=== PATIENT | female | born 1995 | race Caucasian/White ===

== ENCOUNTER 2016-10-08 05:26 | Emergency (ER) | payer OTHER ==
--- NOTE | 2016-10-08 06:46 | ED ---
Throat Pain/Nasal Congestion - HPI Summary HPI Summary: 21F w/ no PMH presents with right lower dental pain since Saturday. She previously had an abscess in the tooth. She did not see a dentist for this. She recently got insurance and stated that the tooth wasn't bothering her so she forgot to set up a dentist. She states she bite on something hard and her tooth started to hurt. She denies any fever, SOB, swelling of her neck, chest pain, swelling around the eye or pain with eye movement. She has been using tyenlol and motrin for the pain. - History of Current Complaint Chief Complaint: EDDentalPain Time Seen by Provider: 10/08/16 06:34 - Allergies/Home Medications Allergies/Adverse Reactions: Allergies Allergy/AdvReac Type Severity Reaction Status Date / Time No Known Allergies Allergy Verified 07/14/16 08:20 PMH/Surg Hx/FS Hx/Imm Hx Endocrine/Hematology History: Denies: Hx Anticoagulant Therapy Cardiovascular History: Denies: Hx Hypertension Infectious Disease History: No Infectious Disease History: Denies: Traveled Outside the [place] in Last 30 Days - Family History Known Family History: Positive: None Negative: Cardiac Disease - Social History Alcohol Use: Rare Substance Use Type: Reports: None Smoking Status (MU): Light Every Day Tobacco Smoker Review of Systems Negative: Fever Positive: Dental Pain Negative: Chest Pain Negative: Shortness Of Breath All Other Systems Reviewed And Are Negative: Yes Physical Exam Triage Information Reviewed: Yes Vital Signs On Initial Exam: Initial Vitals Temp Pulse Resp BP Pulse Ox 98 F 110 20 144/90 99 10/08/16 05:36 10/08/16 05:36 10/08/16 05:36 10/08/16 05:36 10/08/16 05:36 Vital Signs Reviewed: Yes Appearance: Positive: Pain Distress Skin: Positive: Warm, Dry Head/Face: Positive: Normal Head/Face Inspection Eyes: Positive: Normal, EOMI, TG, Conjunctiva Clear ENT: Positive: Normal ENT inspection, Pharynx normal, TMs normal Dental: Positive: Percussion Tenderness @ - 32, Other - no submandibular tenderness, no jaw line tenderness. Negative: Dental Fracture @, Abscess @, Bleeding Neck: Positive: Supple, Nontender, No Lymphadenopathy Respiratory/Lung Sounds: Positive: Clear to Auscultation, Breath Sounds Present Cardiovascular: Positive: Normal, RRR Diagnostics - Vital Signs Vital Signs Temp Pulse Resp BP Pulse Ox 10/08/16 05:36 98 F 110 20 144/90 99 - Laboratory Lab Statement: Any lab studies that have been ordered have been reviewed, and results considered in the medical decision making process. EENT Course/Dx - Course Course Of Treatment: 21 F presents with dental pain in tooth 32. She has been seen here multiple times for this pain. She has not scheduled a dentist appointment yet though she does have insurance now. Do not see abscess or dental fracture. Will prescribed PCN and encouraged to schedule dentist appointment today. patient understands and agrees with plan - Differential Diagnoses Differential Diagnoses: Dental Abscess, Dental Caries, Fractured Tooth - Diagnoses Provider Diagnoses: Pain, dental Discharge - Discharge Plan Condition: Good Disposition: HOME Prescriptions: Penicillin VK TAB* [Penicillin VK 250 mg Tab*] 500 mg PO QID #39 tab Patient Education Materials: Toothache (ED) Referrals: [facility] [place] [facility] REFERRAL [Outside] Additional Instructions: Set up dentist and primary as soon as possible Take antibtiotic: 4 times a day for 10 days, first dose given in ER Use ibuprofen every 6 hours for pain Return to ED if develop fever, shortness of breath, or swelling in the neck, or any new or worsening symptoms
[2016-10-08] MEDS ORDERED: oxyCODONE/Acetamin 5/325 MG* TAB PO ONE (06:48)
[2016-10-08] MEDS ORDERED: Penicillin VK TAB* 250 MG PO ONE (06:48)
[2016-10-08 07:07] VITALS: BP 126/85
== END 2016-10-08 07:04 | disposition home or self-care (01) ==
LOC: ED 05:26
DX: K08.89 Other specified disorders of teeth and supporting structures (principal); Z72.0 Tobacco use
CPT/HCPCS: 99282; A9270-GY

== ENCOUNTER 2016-11-21 18:43 | Emergency (ER) | payer OTHER ==
[2016-11-21 18:50] VITALS: BP 136/83
[2016-11-21] MEDS ORDERED: traMADol TAB* 50 MG PO ONE (19:36)
[2016-11-21] MEDS ORDERED: traMADol TAB* 50 MG ONE (19:37)
--- NOTE | 2016-11-21 20:14 | ED ---
Throat Pain/Nasal Congestion - HPI Summary HPI Summary: Patient presents with left upper and right lower tooth pain for several days. She has been in touch with her dentist who is seeking approval from her insurance to remove the teeth, that have exposed nerves. She tried heat pack, clove oil, tylenol and ibuprofen without relief. She denies fever, chills, facial swelling, drainage or inability to open her mouth. - History of Current Complaint Chief Complaint: EDDentalPain Time Seen by Provider: 11/21/16 18:53 Hx Obtained From: Patient Onset/Duration: Gradual Onset Severity: Severe Associated Signs And Symptoms: Positive: Negative Cough: None - Epiglottits Risk Factors Epiglottis Risk Factors: Negative - Allergies/Home Medications Allergies/Adverse Reactions: Allergies Allergy/AdvReac Type Severity Reaction Status Date / Time No Known Allergies Allergy Verified 07/14/16 08:20 PMH/Surg Hx/FS Hx/Imm Hx Previously Healthy: Yes Endocrine/Hematology History: Denies: Hx Anticoagulant Therapy Cardiovascular History: Denies: Hx Hypertension Infectious Disease History: No Infectious Disease History: Denies: Traveled Outside the [place] in Last 30 Days - Family History Known Family History: Positive: None Negative: Cardiac Disease - Social History Occupation: Employed Part-time Lives: With Family Alcohol Use: Rare Substance Use Type: Reports: None Smoking Status (MU): Light Every Day Tobacco Smoker Household Exposure Type: Cigarettes Review of Systems Negative: Fever, Chills Positive: Dental Pain. Negative: Sore Throat, Ear Ache All Other Systems Reviewed And Are Negative: Yes Physical Exam Triage Information Reviewed: Yes Vital Signs On Initial Exam: Initial Vitals Temp Pulse Resp BP Pulse Ox 97.4 F 95 16 136/83 100 11/21/16 18:48 11/21/16 18:48 11/21/16 18:48 11/21/16 18:48 11/21/16 18:48 Vital Signs Reviewed: Yes Appearance: Positive: Well-Appearing, Well-Nourished, Pain Distress Skin: Positive: Warm, Skin Color Reflects Adequate Perfusion, Dry, Soft Head/Face: Positive: Normal Head/Face Inspection Eyes: Positive: EOMI, TG, Conjunctiva Clear ENT: Positive: Hearing grossly normal, Pharynx normal Dental: Positive: Gross Decay/Caries @ - left upper molar, right lower wisdom tooth Neck: Positive: Supple, Nontender, No Lymphadenopathy Respiratory/Lung Sounds: Positive: Clear to Auscultation, Breath Sounds Present Cardiovascular: Positive: RRR Musculoskeletal: Negative: Edema Left, Edema Right Neurological: Positive: Sensory/Motor Intact, Alert, Oriented to Person Place, Time, Normal Gait Psychiatric: Positive: Affect/Mood Appropriate AVPU Assessment: Alert Diagnostics - Vital Signs Vital Signs Temp Pulse Resp BP Pulse Ox 11/21/16 19:49 70 16 11/21/16 18:48 97.4 F 95 16 136/83 100 - Laboratory Lab Statement: Any lab studies that have been ordered have been reviewed, and results considered in the medical decision making process. EENT Course/Dx - Differential Diagnoses Differential Diagnoses: Dental Abscess, Dental Caries, Fractured Tooth, Gingivitis, Periodontic Abscess, Periodontic Disease, Post-Extraction Pain - Diagnoses Provider Diagnoses: Pain, dental Discharge - Discharge Plan Condition: Stable Disposition: HOME Prescriptions: traMADol TAB* [Ultram*] 50 mg PO Q8H PRN #6 tab MDD 3 PRN Reason: Pain Patient Education Materials: Toothache (ED) Referrals: No Primary Care Phys,NOPCP [Primary Care Provider] - Additional Instructions: Please use the medication provided to help decrease your pain. Continue using ibuprofen 800mg three times daily with meals, and alternate 1000mg of Tylenol every 6 hours. Call your dentist to establish a pain management plan.
== END 2016-11-21 19:49 | disposition home or self-care (01) ==
LOC: ED 18:43
DX: K08.89 Other specified disorders of teeth and supporting structures (principal); F17.210 Nicotine dependence, cigarettes, uncomplicated
CPT/HCPCS: 99282; A9270-GY

== ENCOUNTER 2017-10-11 12:45 | Emergency (ER) | payer SELFPAY ==
[2017-10-11 13:37] LABS: ABS Basophils 0 10^3/ul (0-0.2); ABS Eosinophils 0.1 10^3/ul (0-0.6); ABS Lymphocytes 1.2 10^3/ul (1.0-4.8); ABS Monocytes 0.5 10^3/ul (0-0.8); ABS Neutrophils 5.4 10^3/ul (1.5-7.7); ABS Nucleated RBC 0 10^3/ul; Eosinophil % 1.7 % (0-6); Hematocrit 30 % (35-47); Hemoglobin 10.4 g/dl (12.0-16.0); Mean Corpuscular HGB Conc 34 g/dl (31-36); Mean Corpuscular Hemoglobin 30 pg (27-31); Mean Corpuscular Volume 88 fL (80-97); Mean Platelet Volume 8 um3 (7.4-10.4); Nucleated Red Blood Cells % 0; Platelet Count 217 10^3/ul (150-450); Red Blood Count 3.46 10^6/ul (4.0-5.4); Red Cell Distribution Width 15 % (10.5-15); White Blood Count 7.3 10^3/ul (3.5-10.8)
[2017-10-11 13:57] LABS: Urine Appearance Clear; Urine Blood Negative (Negative); Urine Color Yellow; Urine Ketones Negative (Negative); Urine Protein Negative (Negative); Urine Urobilinogen Negative (Negative)
[2017-10-11] MEDS ORDERED: Acetaminophen TAB* 325 MG PO ONE (16:52)
[2017-10-11 17:13] VITALS: BP 112/56
--- NOTE | 2017-10-12 16:47 | ED ---
Chris Huerta Thomas, scribed for Manny Shane MD on 10/11/17 at 1338 . Complex/Multi-Sys Presentation - HPI Summary HPI Summary: The patient is a 24-weeks , 22 year old female presenting with lower back pain and swelling across her face, eyes, lips, and ankles that began this morning at 08:00. She complains of nausea, headache, and black spots in her vision. She denies abdominal pain, hematuria, vaginal discharge, and vaginal bleeding. In her prior , she had preeclampsia at 7 months. - History Of Current Complaint Chief Complaint: EDBackInjuryPain Time Seen by Provider: 10/11/17 12:54 Hx Obtained From: Patient Onset/Duration: Lasting Hours - onst this AM at 08:00, Still Present Severity Currently: Moderate Severity Initially: Mild Alleviating Factor(s): None Associated Signs And Symptoms: Positive: Other - Lower back pain, swelling, nausea, headache, black spots in vision; NEGATIVE: abd pain, hematuria, vaginal discharge, vaginal bleeding - Allergies/Home Medications Allergies/Adverse Reactions: Allergies Allergy/AdvReac Type Severity Reaction Status Date / Time No Known Allergies Allergy Verified 07/14/16 08:20 PMH/Surg Hx/FS Hx/Imm Hx Endocrine/Hematology History: Denies: Hx Anticoagulant Therapy Cardiovascular History: Denies: Hx Hypertension History: Reports: Other Problems/Disorders - Hx preeclampsia Infectious Disease History: No Infectious Disease History: Denies: Traveled Outside the [place] in Last 30 Days - Family History Known Family History: Negative: Cardiac Disease - Social History Alcohol Use: None Substance Use Type: Reports: None Substance Use Comment - Amount & Last Used: hx marijuana use Smoking Status (MU): Former Smoker Review of Systems Negative: Fever Positive: Other - Black spots in vision Positive: Nausea. Negative: Abdominal Pain Negative: discharge, hematuria, other - vaginal bleeding Positive: Other - Lower back pain, swelling to face/eyes/lips/ankles Positive: Headache All Other Systems Reviewed And Are Negative: Yes Physical Exam - Summary Physical Exam Summary: VITAL SIGNS: Reviewed. GENERAL: Patient is a well-developed and nourished female who is lying comfortable in the stretcher. Patient is not in any acute respiratory distress. HEAD AND FACE: Normocephalic and atraumatic. EYES: PERRLA, EOMI x 2, No injected conjunctiva. EARS: Hearing grossly intact. Ear canals and tympanic membranes are WNL. MOUTH: Oropharynx within normal limits. NECK: Supple, trachea is midline, no adenopathy, no JVD. CHEST: Symmetric, no tenderness at palpation LUNGS: Clear to auscultation bilaterally. No wheezing or crackles. CVS: RRR, S1 and S2 present, no murmurs or gallops appreciated. ABDOMEN: Soft, non-tender. Abdomen is distended secondary to . Positive bowel sounds. No rebound no guarding, and no masses palpated. No abdominal bruit or pulsations. EXTREMITIES: FROM in all major joints, no edema, no cyanosis or clubbing. NEURO: Alert and oriented x 3. No acute neurological deficits. Speech is normal. SKIN: Dry and warm Triage Information Reviewed: Yes Vital Signs On Initial Exam: Initial Vitals Temp Pulse Resp BP Pulse Ox 97.9 F 94 16 106/61 98 10/11/17 12:53 10/11/17 12:53 10/11/17 12:53 10/11/17 12:53 10/11/17 12:53 Vital Signs Reviewed: Yes Diagnostics - Vital Signs Vital Signs Temp Pulse Resp BP Pulse Ox 10/11/17 13:10 110/52 10/11/17 13:00 94 97 10/11/17 12:55 93 106/61 98 10/11/17 12:54 94 98 10/11/17 12:53 97.9 F 94 16 106/61 98 - Laboratory Lab Results: Lab Results 10/11/17 Range/Units 13:14 Blood Type Pending Antibody Screen Pending Result Diagrams: 10/11/17 13:14 10/11/17 13:14 Lab Statement: Any lab studies that have been ordered have been reviewed, and results considered in the medical decision making process. Complex Multi-Symp Course/Dx Assessment/Plan: The patient is a 24-weeks , , 22 year old female presenting with lower back pain and swelling across her face, eyes, lips, and ankles that began this morning at 08:00. She complains of nausea, headache, and black spots in her vision. She denies abdominal pain, hematuria, vaginal discharge, and vaginal bleeding. In her prior , she had preeclampsia at 7 months. Test results are without significant abnormality except a slight anemia. Urinalysis is negative for UTI. She is A positive blood type. In the ED course, the patient was hydrated and given acetaminophen for the pain. She had no further back pain after the medication. heart tones are positive. Since there are no abnormalities, and there is no abdominal cramping, vaginal bleeding, or vaginal discharge, the patient will be discharged home with follow up by CECY Linares. - Diagnoses Provider Diagnoses: Back pain Discharge - Discharge Plan Condition: Stable Disposition: HOME Patient Education Materials: Back Pain (ED) Referrals: [facility] [place] [facility] [Outside] - 3 Days Lucy Herrera MD [Medical Doctor] - 3 Days Additional Instructions: Follow up with your primary care provider in three days. Follow up with CECY Linares, as well for an appointment. If you do not have one, you can use the [facility] physician referral service to find one and make an appointment. Return to the emergency department for any new or worsening symptoms. The documentation as recorded by the Chris garcia Thomas accurately reflects the service I personally performed and the decisions made by , Manny Shane MD.
== END 2017-10-11 17:12 | disposition home or self-care (01) ==
LOC: ED 12:45
DX: O26.892 Other specified pregnancy related conditions, second trimester (principal); Z3A.24 24 weeks gestation of pregnancy; Z87.891 Personal history of nicotine dependence
CPT/HCPCS: 36415; 80053; 81003; 85025; 85730; 86850; 86900; 86901; 99283; A9270-GY

== ENCOUNTER 2018-02-07 15:57 | Inpatient (IN) | payer OTHER ==
[2018-02-07] MEDS ORDERED: Oxytocin in LR* 20 UNITS/1,000 ML BAG IVPB ONE (16:45)
[2018-02-07] MEDS ORDERED: Acetaminophen TAB* 325 MG PO PRN (16:56)
[2018-02-07] MEDS ORDERED: Dibucaine 1% 28.35 GM TUBE PR PRN (16:56)
[2018-02-07] MEDS ORDERED: Glycerin ADULT SUPP PR PRN (16:56)
[2018-02-07] MEDS ORDERED: Witch Hazel PAD* JAR TOPICAL PRN (16:56)
[2018-02-07] MEDS ORDERED: Ibuprofen TAB* 600 MG ONE (16:57)
[2018-02-07] MEDS ORDERED: Oxytocin in LR* 20 UNITS/1,000 ML BAG IVPB SCH (17:00)
[2018-02-07] MEDS: Ibuprofen TAB* 600 MG PO PRN ×2 (17:00→23:49)
--- NOTE | 2018-02-07 17:04 | HP ---
General Information - General Information Maternal Age: 23 Grav: 2 Para: 1 SAB: 0 IEA: 0 Estimated Due Date: 02/09/18 Determined By: Early Ultrasound Gestational Age in Weeks and Days: 39 Weeks and 5 Days Maternal Blood Type and Rh: A Positive - Results this Serology/RPR Result: Non-Reactive Rubella Result: Immune HBsAg Result: Negative HIV Result: Negative GBS Culture Result: Negative Past Medical History Delivery History: Hx Uncomplicated Vaginal Delivery Delivery History Comment: prior induction at 37 wks for preeclampsia Pertinent Past Medical History: Non-Contributory Past Medical History Comment: LGSIL Pertinent Past Surgical History: None Pertinent Family History: Non-Contributory Family History Comment: mother with thyroid cancer - Antepartal Records Antepartal Records: Reviewed, Complicated by: - smoker, drug screen positive for THC, opiods Review of Systems Constitutional: Uncomfortable - wants epidural CV Complaint: No Respiratory: Shortness of Breath: No Gastrointestinal: No Nausea/Vomiting Genitourinary: No Leaking Fluid Musculoskeletal: Contractions Neurological: No Headache Movement: Normal Exam Allergies/Adverse Reactions: Allergies No Known Allergies Allergy (Verified 07/14/16 08:20) - Measurements Height: 5 ft 6 in Weight: 179 lb Weight in lbs: 179 Body Mass Index (BMI): 28.8 Pre- Weight: 5.221 oz Weight Gained This : 178.673 lbs and 0.011 ozs - Exam Breast: - - soft, no masses CVA: No CVA Tenderness Extremities: Edema Heart: Normal Rhythm/Heart Sounds HEENT: No Significant Findings Lungs: Clear Bilaterally Reflexes: DTR 2+ Thyroid: No Thyromegaly - Ultrasound/Biophysical Profile Ultrasound Status: Not Done Targeted Exam Findings See L&D Outpatient Visit Provider Note for Findings: N/A Estimated Weight: 8 lbs Cervical Exam: 8cm Effacement: 90% Station: 0 Presenting Part: Vertex Membrane Status: Bulging EFM Findings - External Monitor Findings Baseline Heart Rate: 130 External Monitor Findings: Accelerations Present, No Pattern of Variable or Late Decelerations, Variability Moderate External Monitor Findings Comment: category 1 Contractions: Regular, Strong, 45-90 Seconds Contraction Frequency: every 3 min Assessment/Plan - Reason for Visit Reason for Visit: labor - Obstetrical Risk Factors Obstetrical Risk Factors: Substance Abuse, Tobacco Use - Plan Plan: Active Labor Plan Comment: Will admit, anticipate vaginal delivery Suggest nitrous oxide as do not feel will have time for epidural - Date/Time of Admission Date of Admission: 02/07/18 Time of Admission: 16:00
[2018-02-07] MEDS: Docusate CAP* 100 MG PO SCH (21:46)
[2018-02-08] MEDS ORDERED: Calcium Carbonate CHEW TAB* 500 MG (TUMS) PO PRN (02:21)
[2018-02-08] MEDS ORDERED: Calcium Carbonate CHEW TAB* 500 MG (TUMS) ONE (02:38)
[2018-02-08 06:11] LABS: Hematocrit 27 % (35-47); Mean Corpuscular HGB Conc 34 g/dl (31-36); Mean Corpuscular Hemoglobin 29 pg (27-31); Mean Corpuscular Volume 84 fL (80-97); Mean Platelet Volume 8.7 um3 (7.4-10.4); Platelet Count 174 10^3/ul (150-450); Red Blood Count 3.16 10^6/ul (4.0-5.4); Red Cell Distribution Width 16 % (10.5-15); White Blood Count 8.3 10^3/ul (3.5-10.8)
[2018-02-08] MEDS: Ferrous Gluconate TAB* 324 MG TAB PO SCH ×2 (08:29→21:54)
[2018-02-08] MEDS: Docusate CAP* 100 MG PO SCH ×3 (08:29→21:54)
[2018-02-08] MEDS: Ibuprofen TAB* 600 MG PO PRN ×3 (08:29→23:54)
[2018-02-09 08:49] VITALS: BP 120/59
[2018-02-09] MEDS: Docusate CAP* 100 MG PO SCH (09:24)
[2018-02-09] MEDS: Ferrous Gluconate TAB* 324 MG TAB PO SCH (09:24)
[2018-02-09] MEDS: Ibuprofen TAB* 600 MG PO PRN (11:23)
== END 2018-02-09 13:00 | disposition home or self-care (01) | DRG 560 ==
LOC: MCHOBOUT 15:57 → MCHOB 16:01
PROVIDERS: ADMIT Midwife; ATTEND Midwife
PROC: 10E0XZZ Delivery of Products of Conception, External Approach (ICD-10-PCS; principal; 2018-02-07)
PROC: 10907ZC Drainage of Amniotic Fluid, Therapeutic from Products of Conception, Via Natural or Artificial Opening (ICD-10-PCS; 2018-02-07)
DX: O99.324 Drug use complicating childbirth (principal); F11.90 Opioid use, unspecified, uncomplicated; O99.334 Smoking (tobacco) complicating childbirth; F17.210 Nicotine dependence, cigarettes, uncomplicated; O90.81 Anemia of the puerperium; D64.9 Anemia, unspecified; O70.0 First degree perineal laceration during delivery; Z3A.39 39 weeks gestation of pregnancy; Z37.0 Single live birth
CPT/HCPCS: 36415; 85027; A9270-GY

== ENCOUNTER → 2018-11-17 18:47 | Emergency (ER) | payer OTHER ==
[2018-11-17 19:30] VITALS: BP 132/72
== END | disposition left against medical advice (07) ==
LOC: ED 18:47
DX: R50.9 Fever, unspecified (principal); Z53.21 Procedure and treatment not carried out due to patient leaving prior to being seen by health care provider

== ENCOUNTER 2019-02-20 21:39 | Inpatient (IN) | payer OTHER ==
[2019-02-20] MEDS ORDERED: Oxytocin in LR* 20 UNITS/1,000 ML BAG IVPB ONE (21:56)
[2019-02-20] MEDS ORDERED: Buffered Lidocaine 1% SYRIN* 1 ML/SYRINGE INTRADERM ONE (22:30)
[2019-02-20] MEDS ORDERED: Lactated Ringers 1000 ML Bag* 1,000 ML IV ONE (22:30)
[2019-02-20] MEDS ORDERED: Witch Hazel PAD* JAR TOPICAL PRN (22:41)
[2019-02-20] MEDS ORDERED: Dibucaine 1% 28.35 GM TUBE PR PRN (22:41)
[2019-02-20] MEDS ORDERED: Glycerin ADULT SUPP PR PRN (22:41)
[2019-02-20] MEDS ORDERED: Lactated Ringers 1000 ML Bag* 1,000 ML IV SCH ×2 (23:00)
[2019-02-20] MEDS ORDERED: Oxytocin in LR* 20 UNITS/1,000 ML BAG IVPB SCH (23:00)
[2019-02-20] MEDS ORDERED: Ibuprofen TAB* 600 MG ONE (23:11)
[2019-02-20] MEDS ORDERED: Nicotine PATCH 7 MG/24 HR* PATCH TRANSDERM SCH (23:45)
--- NOTE | 2019-02-21 00:33 | HP ---
General Information - Reason for Visit labor - General Information Maternal Age: 24 Grav: 3 Para: 2 SAB: 0 IEA: 0 Estimated Due Date: 02/18/19 Determined By: Early Ultrasound Maternal Blood Type and Rh: A Positive - Results this Serology/RPR Result: Non-Reactive Rubella Result: Immune HBsAg Result: Negative HIV Result: Negative GBS Culture Result: Positive Past Medical History Delivery History: Hx Uncomplicated Vaginal Delivery Delivery History Comment: SVB, PEC 03/2015 SVB 01/2018 Pertinent Past Medical History: See Records Past Medical History Comment: Hx Opioid dependence, on Subutex Depression, fluoxetine Migraine Pertinent Past Surgical History: None Pertinent Family History: See Records Family History Comment: Thyroid Ca Diabetes Throat Ca - Antepartal Records Antepartal Records: Reviewed, Complicated by: - Subutex, homelessness , hx PEC previous , varicella non-immune, smoker Review of Systems Constitutional: Uncomfortable CV Complaint: No Respiratory: Shortness of Breath: No Genitourinary: Leaking Fluid - ? Musculoskeletal: Contractions, Pressure - Comments Difficult to assess as patient in active labor on arrival Exam Allergies/Adverse Reactions: Allergies No Known Allergies Allergy (Verified 02/20/19 22:02) - Measurements Pre- Weight: 5.221 oz - Exam Breast: Breast Exam Deferred - Abdominal Exam Abdomen Exam: Non-Tender - Ultrasound/Biophysical Profile Ultrasound Status: Not Done Targeted Exam Findings Cervical Exam: 8cm Presenting Part: Vertex Membrane Status: Intact Bleeding/Discharge: None EFM Findings - External Monitor Findings Baseline Heart Rate: 130 External Monitor Findings: Accelerations Present, No Pattern of Variable or Late Decelerations, Variability Moderate Contractions: Strong, 45-90 Seconds Contraction Frequency: q 2-4 min Assessment/Plan - Assessment IUP in active labor. IBOW. GBS positive. No evidence metabolic acidemia. - Obstetrical Risk Factors Obstetrical Risk Factors: GBS Positive - Plan Plan: Admit - Anticipate Vaginal Delivery - Date/Time of Admission Date of Admission: 02/21/19 Time of Admission: 21:55
--- NOTE | 2019-02-21 00:59 | PROCNOTE ---
[facility] OB: Delivery Note - Delivery A Date of : 02/20/19 Time of : 22:10 [place] Sex: Male Weight at : 6 lb 11 oz Score 1 Minute: 8 Score 5 Minutes: 9 Gestational Age in Weeks and Days at Delivery: 40 Weeks and 2 Days Delivery Method: Spontaneous Vaginal Labor: Spontaneous Did Patient attempt ?: N/A, No Previous Amniotic Fluid: Meconium Estimated Blood Loss: 450 Anesthesia/Analgesia: None Delivered By: Katharine Barrera - Nursery Level of Nursery: Regular/Bedside - Perineum Perineal Injury: None/Intact Perineal Repair: None - Events Delivery Events of Note: Pitocin Only After Delivery, Precipitous Delivery, Antibiotics Indicated - Not Given - Risk for Falls Delivered OB Patient- Risk for Falls: Heavy Bleeding, Excessive Pain Other Risk for Falls: hx of preeclampsia Fall Risk: Patient is at High Risk for Falls - Additional Delivery Notes Additional Delivery Notes: Patient arrived via ambulance in active labor. Shortly after began pushing, pushed 5 min to of baby, OA to BRANDY. Baby vigorous, to maternal abdomen with spontaneous cry, HR>110. Cord clamped and cut by FOB. Fundus firm to massage with pitocin infusing. Clots expressed several times and cytotec 800mcg give NM with good hemostasis. Baby stable.
[2019-02-21 03:15] LABS: Urine Benzodiazepine Screen None Detected (None Detect); Urine Opiates Screen None Detected (None Detect)
[2019-02-21] MEDS ORDERED: Misoprostol TAB* 200 MCG ONE (04:33)
[2019-02-21] MEDS: Ibuprofen TAB* 600 MG PO PRN ×3 (05:45→20:07)
[2019-02-21] MEDS: Calcium Carbonate CHEW TAB* 500 MG (TUMS) PO PRN ×2 (06:53→16:10)
[2019-02-21] MEDS ORDERED: Ferrous Gluconate TAB* 324 MG TAB PO SCH (09:00)
[2019-02-21] MEDS ORDERED: Varicella Virus Vaccine Live* 0.5 ML VIAL SUBCUT ONE (09:00)
[2019-02-21] MEDS: Docusate CAP* 100 MG PO SCH ×3 (11:21→20:08)
[2019-02-21] MEDS ORDERED: diPHENhydraMINE PO* 50 MG ONE (11:57)
[2019-02-21 12:12] LABS: ABS Eosinophils 0.1 10^3/ul (0-0.6); ABS Lymphocytes 1.5 10^3/ul (1.0-4.8); ABS Monocytes 0.6 10^3/ul (0-0.8); ABS Neutrophils 3.4 10^3/ul (1.5-7.7); Eosinophil % 2.2 %; Hematocrit 28 % (35-47); Hemoglobin 9.5 g/dL (12.0-16.0); Lymphocyte % 26.3 %; Mean Corpuscular HGB Conc 34 g/dL (31-36); Mean Corpuscular Hemoglobin 28 pg (27-31); Mean Corpuscular Volume 81 fL (80-97); Mean Platelet Volume 9.3 fL (7.4-10.4); Platelet Count 130 10^3/uL (150-450); Red Blood Count 3.44 10^6 /uL (3.70-4.87); Red Cell Distribution Width 16 % (10-15); White Blood Count 5.6 10^3/uL (3.5-10.8)
[2019-02-21] MEDS: Buprenorphine TAB* 8 MG SL SCH (12:16)
[2019-02-21] MEDS ORDERED: diPHENhydraMINE PO* 50 MG PO PRN (12:49)
[2019-02-21 13:09] LABS: Albumin 2.7 g/dL (3.2-5.2); Albumin/Globulin Ratio 1.1 (1-3); BUN/Creatinine Ratio 16.1 (8-20); C Reactive Protein 25.2 mg/L (<8.01); Calcium 8.7 mg/dL (8.6-10.3); EGFR African American 159.6 (>60); EGFR Non-African American 131.9 (>60); Globulin 2.4 g/dL (2-4); Potassium 3.7 mmol/L (3.5-5.0); Total Bilirubin 0.5 mg/dL (0.2-1.0); Total Protein 5.1 g/dL (6.4-8.9)
--- NOTE | 2019-02-21 13:10 | PN ---
Progress Note - Progress Note Date of Service: 02/21/19 Note: S: Pt is in bed sleeping. Baby at nurses station. Notified by RN pt's eyes and lips swelling. Pt states no hx of this happening in past, pt states feels like it started right after delivery. Also reports abdominal cramping. Denies SOB, dizziness, nausea/vomiting, itching. O: BP 121/70, RR 18, HR 70, Temp 98 Edema of eyes, lips Lungs clear to auscultation, bilaterally Fundus firm and at the umbilicus A: Pt is s/p VSS angioedema P: Benadryl, 50mg now and loratidine, 10mg, prn. Labs: CBC, Complement c4, CMP, CRP, LFT, ESR
[2019-02-21] MEDS ORDERED: Cetirizine* 10 MG TAB PO PRN (13:19)
--- NOTE | 2019-02-21 13:45 | PN ---
Progress Note - Progress Note Date of Service: 02/21/19 Note: S: Pt is in bed sleeping. Baby at bedside. RN feeding baby via bottle. Abdominal cramping improved. Denies SOB, dizziness, nausea/vomiting, itching. Pt upset and wants to leave the hospital. States she needs to go to [employer] and get her things. States no one else can go and get what she needs. Explained the hospital policy, no pt allowed to leave unit, and explained why. Offered to call [facility] with a desired list of items so her SO could bring while here. Pt threatening to leave AMA. Explained strongly advised given angioedema and need to care for . O: Edema of eyes and lips A: Pt is s/p angioedema - unchanged from last assessment P: Consult with Keli Herrera - urine drug screen and SW consult now. Loratidine, 10mg , PRN. Concerned about pt's involvement with baby - RNs aware; SW paged.
[2019-02-21] MEDS: Buprenorphine TAB* 2 MG TAB.SL SL SCH (14:14)
[2019-02-21] MEDS ORDERED: Famotidine TAB* 20 MG PO ONE (15:49)
[2019-02-21 16:01] LABS: Urine Benzodiazepine Screen None Detected (None Detect); Urine Opiates Screen None Detected (None Detect)
[2019-02-21] MEDS: Acetaminophen TAB* 325 MG PO PRN (16:19)
--- NOTE | 2019-02-21 16:30 | PN ---
Progress Note - Progress Note Date of Service: 02/21/19 Note: Pt doing well. Holding baby. Smiling, engaged with RN and myself. Using higher dose nicotine patch - pt reports helps cravings a bit more. Ordering dinner. Pt showered and reports decrease in eye/lip swelling. Angioedema appears to be resolving s/p H1 histamine. Will continue to monitor closely. Labs returned are unremarkable. CRP elevated, consistent with PP elevation.
[2019-02-21] MEDS ORDERED: Nicotine Patch Removal NOTE PATCH OFF SCH (21:00)
[2019-02-22] MEDS: Acetaminophen TAB* 325 MG PO PRN ×3 (00:30→14:15)
[2019-02-22] MEDS: Ibuprofen TAB* 600 MG PO PRN ×2 (02:57→11:37)
[2019-02-22] MEDS: Buprenorphine TAB* 8 MG SL SCH (08:13)
[2019-02-22] MEDS: Docusate CAP* 100 MG PO SCH ×2 (08:13→14:16)
[2019-02-22] MEDS: Calcium Carbonate CHEW TAB* 500 MG (TUMS) PO PRN (08:13)
[2019-02-22] MEDS ORDERED: Cetirizine* 10 MG TAB PO SCH (09:00)
[2019-02-22] MEDS ORDERED: Nicotine PATCH 21 MG/24 HR* PATCH TRANSDERM SCH (09:00)
[2019-02-22] MEDS: Buprenorphine TAB* 2 MG TAB.SL SL SCH (14:13)
[2019-02-22 16:07] VITALS: BP 118/58
== END 2019-02-22 16:20 | disposition home or self-care (01) | DRG 560 ==
LOC: MCHOBOUT 21:39 → MCHOB 21:55
PROVIDERS: ADMIT Midwife; ATTEND Midwife
PROC: 10E0XZZ Delivery of Products of Conception, External Approach (ICD-10-PCS; principal; 2019-02-20)
PROC: 10907ZC Drainage of Amniotic Fluid, Therapeutic from Products of Conception, Via Natural or Artificial Opening (ICD-10-PCS; 2019-02-20)
DX: O48.0 Post-term pregnancy (principal); Z37.0 Single live birth; O99.824 Streptococcus B carrier state complicating childbirth; O99.344 Other mental disorders complicating childbirth; F32.9 Major depressive disorder, single episode, unspecified; O99.334 Smoking (tobacco) complicating childbirth; O90.81 Anemia of the puerperium; D64.9 Anemia, unspecified; O77.0 Labor and delivery complicated by meconium in amniotic fluid; O90.89 Other complications of the puerperium, not elsewhere classified; T78.3XXA Angioneurotic edema, initial encounter; X58.XXXA Exposure to other specified factors, initial encounter; Y92.230 Patient room in hospital as the place of occurrence of the external cause; Z3A.40 40 weeks gestation of pregnancy
CPT/HCPCS: 36415; 59200; 80053; 80307; 85025; 86140; 86160; A9270-GY

== ENCOUNTER 2019-03-19 17:34 | Emergency (ER) | payer OTHER ==
[2019-03-19] MEDS ORDERED: NS 0.9% 1000 ML** 1,000 ML BOLUS ONE ×2 (17:58→19:13)
[2019-03-19] MEDS ORDERED: Ondansetron INJ* 2 MG/ML VIAL IV ONE (17:59)
--- NOTE | 2019-03-19 19:19 | UC ---
Abdominal Pain Female HPI - HPI Summary HPI Summary: 24 yo female with nausea/vominting x 3 days is one month PP, bottle feeding dizzy when she stands Has had nausea and 1-3 episodes of vomiting /d no real abd pain other than the discomfort associated with the nausea and vomiting no f/c no UTI symptoms Mild WOOD today dental abscess and pain for about a week - History of Current Complaint Chief Complaint: UCGeneralIllness Stated Complaint: DIZZINESS Time Seen by Provider: 03/19/19 17:48 Hx Obtained From: Patient Onset/Duration: Gradual Onset, Lasting Hours Severity Initially: Mild Severity Currently: Mild Pain Intensity: 3 - WOOD Pain Scale Used: 0-10 Numeric Character: Cramping Aggravating Factor(s): Food Alleviating Factor(s): Nothing Associated Signs and Symptoms: Positive: Decreased Appetite, Vaginal Discharge - lochia, Nausea, Vomiting. Negative: Diaphoresis, Fever, Cough, Chest Pain, Dizzy, Back Pain, Constipation, Blood in Stool, Urinary Symptoms, Vaginal Bleeding, Diarrhea Allergies/Adverse Reactions: Allergies Allergy/AdvReac Type Severity Reaction Status Date / Time No Known Allergies Allergy Verified 03/19/19 17:51 PMH/Surg Hx/FS Hx/Imm Hx Previously Healthy: Yes Other History Of: Negative For: Anticoagulant Therapy - Surgical History Surgical History: None - Family History Known Family History: Positive: None, Non-Contributory Negative: Cardiac Disease - Social History Alcohol Use: None Substance Use Type: None Substance Use Comment - Amount & Last Used: pt on suboxone, also admits to marijuana use recently Smoking Status (MU): Light Every Day Tobacco Smoker Type: Cigarettes Household Exposure Type: Cigarettes - Immunization History Most Recent Influenza Vaccination: 10/31/17 Most Recent Pneumonia Vaccination: none Review of Systems All Other Systems Reviewed And Are Negative: Yes Constitutional: Positive: Fatigue Skin: Positive: Negative Eyes: Positive: Negative ENT: Positive: Dental Pain Respiratory: Positive: Negative Gastrointestinal: Positive: Vomiting, Nausea Genitourinary: Positive: Negative Motor: Positive: Negative Neurovascular: Positive: Negative Musculoskeletal: Positive: Negative Neurological: Positive: Headache Physical Exam Triage Information Reviewed: Yes Completion Of Physical Exam Limited Due To: Altered Mental Status Appearance: Well-Appearing Vital Signs: Initial Vital Signs Temp 98.1 F 03/19/19 17:46 Pulse 70 03/19/19 17:46 Resp 16 03/19/19 17:46 BP 106/65 03/19/19 17:46 Pulse Ox 96 03/19/19 17:46 Vital Signs Reviewed: Yes Eyes: Positive: Conjunctiva Clear ENT: Positive: Hearing grossly normal, Uvula midline. Negative: Nasal congestion, Nasal drainage, TMs normal, TM bulging, Tonsillar swelling, Tonsillar exudate, Muffled voice, Hoarse voice Dental Exam: Other - see image Dental: Positive: Abscess @ Neck: Positive: Supple, Nontender, No Lymphadenopathy Respiratory: Positive: Lungs clear, Normal breath sounds, No respiratory distress, No accessory muscle use Cardiovascular: Positive: RRR, No Murmur Abdomen Description: Positive: No Organomegaly, Soft Musculoskeletal: Positive: ROM Intact, No Edema Neurological: Positive: Alert Psychological Exam: Normal Skin Exam: Normal Images Dental: 1 - abscess Re-Evaluation - Re-Evaluation First Eval Change: Improved - feels better, WOOD gone, nausea better Second Eval Re-Evaluation Time: 20:03 Change: Improved Comment: desires to go home...markedly improved Abd Pain Female Course/Dx - Differential Dx/Diagnosis Provider Diagnosis: Acute vomiting, Dental abscess, Dehydration Discharge - Sign-Out/Discharge Documenting (check all that apply): Patient Departure All imaging exams completed and their final reports reviewed: No Studies - Discharge Plan Condition: Improved Disposition: HOME Referrals: No Primary Care Phys,NOPCP [Primary Care Provider] - - Billing Disposition and Condition Condition: IMPROVED Disposition: Home
[2019-03-19] MEDS ORDERED: cefTRIAXone VIAL(*) 1,000 MG in NS 0.9% 50 ML* 50 ML IVPB ONE (19:27)
[2019-03-19] MEDS ORDERED: cefTRIAXone VIAL(*) 1,000 MG VIAL ONE (19:34)
[2019-03-19 20:24] VITALS: BP 108/60
[2019-03-20 13:03] LABS: ABS Eosinophils 0.1 10^3/ul (0-0.6); ABS Lymphocytes 1.7 10^3/ul (1.0-4.8); ABS Monocytes 0.3 10^3/ul (0-0.8); ABS Neutrophils 3.1 10^3/ul (1.5-7.7); Eosinophil % 1.9 %; Hematocrit 38 % (35-47); Hemoglobin 12.6 g/dL (12.0-16.0); Lymphocyte % 32.1 %; Mean Corpuscular HGB Conc 33 g/dL (31-36); Mean Corpuscular Hemoglobin 27 pg (27-31); Mean Corpuscular Volume 82 fL (80-97); Mean Platelet Volume 9.2 fL (7.4-10.4); Nucleated Red Blood Cells % 0.2; Platelet Count 223 10^3/uL (150-450); Red Blood Count 4.61 10^6 /uL (3.70-4.87); Red Cell Distribution Width 17 % (10-15); White Blood Count 5.2 10^3/uL (3.5-10.8)
[2019-03-20 13:09] LABS: Calcium 9.5 mg/dL (8.6-10.3); Potassium 3.7 mmol/L (3.5-5.0)
[2019-03-20 13:14] LABS: BUN/Creatinine Ratio 29.1 (8-20); EGFR African American 97.3 (>60); EGFR Non-African American 80.4 (>60)
== END 2019-03-19 20:30 | disposition home or self-care (01) ==
LOC: UCEAST 17:34
DX: O90.89 Other complications of the puerperium, not elsewhere classified (principal); R11.2 Nausea with vomiting, unspecified; K04.7 Periapical abscess without sinus; E86.0 Dehydration
CPT/HCPCS: 36415; 80048; 81002; 85025; 96360; 96361; 96374; 96376; 99212; G0463; J0696; J2405

== ENCOUNTER → 2019-03-30 22:42 | Emergency (ER) | payer OTHER ==
[2019-03-30 22:53] VITALS: BP 106/67
== END | disposition left against medical advice (07) ==
LOC: ED 22:42
DX: Z53.21 Procedure and treatment not carried out due to patient leaving prior to being seen by health care provider (principal)
CPT/HCPCS: 99282

== ENCOUNTER 2019-10-08 16:00 | Emergency (ER) | payer OTHER ==
[2019-10-08 18:40] LABS: ABS Eosinophils 0.1 10^3/ul (0-0.6); ABS Lymphocytes 2.2 10^3/ul (1.0-4.8); ABS Monocytes 0.3 10^3/ul (0-0.8); Eosinophil % 2.3 %; Hematocrit 35 % (35-47); Hemoglobin 12.1 g/dL (12.0-16.0); Lymphocyte % 46.8 %; Mean Corpuscular HGB Conc 35 g/dL (31-36); Mean Corpuscular Hemoglobin 29 pg (27-31); Mean Corpuscular Volume 84 fL (80-97); Nucleated Red Blood Cells % 0.1; Platelet Count 216 10^3/uL (150-450); Red Blood Count 4.16 10^6 /uL (3.70-4.87); Red Cell Distribution Width 14 % (10-15); White Blood Count 4.6 10^3/uL (3.5-10.8)
[2019-10-08] MEDS ORDERED: Buprenorphine TAB* 8 MG PO ONE (18:49)
--- NOTE | 2019-10-08 18:50 | ED ---
Complex/Multi-Sys Presentation - HPI Summary HPI Summary: Patient is a 24 y/o F presenting to [facility] with complaints of nausea, dizziness, loss of hearing, and stabbing RLQ pain. She states that when she got up yesterday morning and went to the shower, she had onset of loss of hearing and dizziness. Episode lasted 5 minutes at the time, but she states that she had repeated episodes throughout yesterday and today. Patient also notes that when she went to lie down last night to go to sleep, she had onset of constant RLQ pain. She has been nauseous but denies vomiting. Some diarrhea is noted but she denies vaginal bleeding, increased frequency of urination, hematuria, and dysuria. Pain is rated 5/10 and waxes and wanes in intensity. No Hx of ovarian cysts or other ovarian issues noted. Hx of preeclampsia is endorsed. There is a chance that she is . Patient is on subutex, which she has not had today , 8 mg in morning 2 mg in evening. Fever, chills, erythema of eyes, sore throat , CP, SOB, cough, dysuria, hematuria, myalgia, edema, rash are not reported. On triage, pain is rated 7/10 in severity. 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 Home medications and allergies are reviewed. - History Of Current Complaint Chief Complaint: EDAbdPain Time Seen by Provider: 10/08/19 18:42 Hx Obtained From: Patient Onset/Duration: Still Present - abd pain Timing: Constant - abd pain, Intermittent, Lasting: - dizziness and hearing loss Severity Currently: Severe Location: Pain At: - RLQ pain Associated Signs And Symptoms: Positive: Dizziness, Nausea, Diarrhea, Abdominal Pain, Other - negative UTI Sx, vaginal bleeding. Negative: SOB, Cough, Chest Pain, Edema, Vomiting, Dysuria, Fever - Allergies/Home Medications Allergies/Adverse Reactions: Allergies Allergy/AdvReac Type Severity Reaction Status Date / Time No Known Allergies Allergy Verified 10/08/19 16:19 Home Medications: Home Medications Buprenorphine TAB* [Subutex TAB*] 2 mg SL QPM 10/08/19 [History Confirmed ] Bupropion XL* [Wellbutrin XL *] 150 mg PO QAM 10/08/19 [History Confirmed ] Gabapentin CAP(*) [Neurontin 300 CAP(*)] 300 mg PO TID 10/08/19 [History Confirmed 10/08/19] Sertraline* [Zoloft*] 50 mg PO DAILY 10/08/19 [History Confirmed 10/08/19] cloNIDine TAB* [Catapres 0.1 MG TAB*] 0.1 mg PO BEDTIME 10/08/19 [History Confirmed 10/08/19] PMH/Surg Hx/FS Hx/Imm Hx Endocrine/Hematology History: Denies: Hx Anticoagulant Therapy, Hx Diabetes, Hx Thyroid Disease Cardiovascular History: Denies: Hx Hypertension Respiratory History: Denies: Hx Asthma History: Reports: Other Problems/Disorders - Hx preeclampsia Denies: Hx Kidney Infection Psychiatric History: Reports: Other Psychiatric Issues/Disorders - opiate addiction Denies: Hx Anxiety, Hx Depression Infectious Disease History: No Infectious Disease History: Denies: Traveled Outside the [place] in Last 30 Days - Family History Known Family History: Negative: Cardiac Disease - Social History Alcohol Use: None Substance Use Type: Reports: None Substance Use Comment - Amount & Last Used: pt on suboxone, also admits to marijuana use recently Smoking Status (MU): Light Every Day Tobacco Smoker Type: Cigarettes Review of Systems Negative: Fever, Chills Eyes: Other - positive - hearing loss Negative: Erythema Negative: Sore Throat Negative: Chest Pain Negative: Shortness Of Breath, Cough Positive: Abdominal Pain, Diarrhea, Nausea. Negative: Vomiting Genitourinary: Other - negative - vaginal bleeding Negative: dysuria, frequency, hematuria Negative: Myalgia, Edema Negative: Rash Neurological: Other - positive - dizziness All Other Systems Reviewed And Are Negative: Yes Physical Exam - Summary Physical Exam Summary: Constitutional: Well-developed, Well-nourished, Alert. (-) Distressed Skin: Warm, Dry HENT: Normocephalic; Atraumatic Eyes: Conjunctiva normal Neck: Musculoskeletal ROM normal neck. (-) JVD, (-) Stridor, (-) Tracheal deviation Cardio: Rhythm regular, rate normal, Heart sounds normal; Intact distal pulses; The pedal pulses are 2+ and symmetric. Radial pulses are 2+ and symmetric. (-) Murmur Pulmonary/Chest wall: Effort normal. (-) Respiratory distress, (-) Wheezes, (-) Rales Abd: Soft, RLQ tenderness, (-) Distension, (-) Guarding, (-) Rebound Musculoskeletal: (-) Edema Lymph: (-) Cervical adenopathy Neuro: Alert, Oriented x3 Psych: Mood and affect Normal Triage Information Reviewed: Yes Vital Signs On Initial Exam: Initial Vitals Temp Pulse Resp BP Pulse Ox 98.2 F 76 16 90/64 96 10/08/19 16:16 10/08/19 16:16 10/08/19 16:16 10/08/19 16:16 10/08/19 16:16 Vital Signs Reviewed: Yes Procedures - Sedation Patient Received Moderate/Deep Sedation with Procedure: No Diagnostics - Vital Signs Vital Signs Temp Pulse Resp BP Pulse Ox 10/08/19 16:16 98.2 F 76 16 64 96 - Laboratory Lab Results: Lab Results 10/08/19 Range/Units 18:34 WBC 4.6 (3.5-10.8) 10^3/uL RBC 4.16 (3.70-4.87) 10^6 /uL Hgb 12.1 (12.0-16.0) g/dL Hct 35 (35-47) % MCV 84 (80-97) fL MCH 29 (27-31) pg MCHC 35 (31-36) g/dL RDW 14 (10-15) % Plt Count 216 (150-450) 10^3/uL MPV 9.0 (7.4-10.4) fL Neut % (Auto) 42.5 % Lymph % (Auto) 46.8 % [place] % (Auto) 7.4 % Eos % (Auto) 2.3 % Baso % (Auto) 1.0 % Absolute Neuts (auto) 2.0 (1.5-7.7) 10^3/ul Absolute Lymphs (auto) 2.2 (1.0-4.8) 10^3/ul Absolute Monos (auto) 0.3 (0-0.8) 10^3/ul Absolute Eos (auto) 0.1 (0-0.6) 10^3/ul Absolute Basos (auto) 0.0 (0-0.2) 10^3/ul Absolute Nucleated RBC 0.0 10^3/ul Nucleated RBC % 0.1 Result Diagrams: 10/08/19 18:34 10/08/19 18:34 Lab Statement: Any lab studies that have been ordered have been reviewed, and results considered in the medical decision making process. - Ultrasound PELVIC US Ultrasound Interpretation Completed By: Radiologist Summary of Ultrasound Findings: PELVIC US IMPRESSION: Sonographically normal uterus and ovaries. THIS REPORT WAS REVIEWED BY ED PHYSICIAN APPENDIX US Ultrasound Interpretation Completed By: Radiologist Summary of Ultrasound Findings: APPENDIX US IMPRESSION: Nonvisualized appendix with no secondary findings to suggest appendicitis. THIS REPORT WAS REVIEWED BY ED PHYSICIAN. Re-Evaluation - Re-Evaluation First Eval Re-Evaluation Time: 22:29 Change: Improved Comment: I have discussed results with the patient and abdominal pain is resolved. Discussed symptoms that warrant immediate return to ED. Complex Multi-Symp Course/Dx Course Of Treatment: Patient is a 24 y/o F presenting to [facility] with complaints of nausea, dizziness, loss of hearing, and stabbing RLQ pain. She states that when she got up yesterday morning and went to the shower, she had onset of loss of hearing and dizziness. Episode lasted 5 minutes at the time, but she states that she had repeated episodes throughout yesterday and today. Patient also notes that when she went to lie down last night to go to sleep, she had onset of constant RLQ pain. She has been nauseous but denies vomiting. Some diarrhea is noted but she denies vaginal bleeding, increased frequency of urination, hematuria, and dysuria. Pain is rated 5/10 and waxes and wanes in intensity. No Hx of ovarian cysts or other ovarian issues noted. Hx of preeclampsia is endorsed. There is a chance that she is . Patient was given her Subutex. Bloodwork obtained. PELVIC US IMPRESSION: Sonographically normal uterus and ovaries. APPENDIX US IMPRESSION: Nonvisualized appendix with no secondary findings to suggest appendicitis. Patient is signed out to Dr. Pennington at 10/08/[address] abd/pel. - Diagnoses Provider Diagnoses: RLQ abdominal pain Discharge ED - Sign-Out/Discharge Documenting (check all that apply): Sign-Out Patient Signing out patient TO: Chery Pennington - Discharge Plan Condition: Stable Disposition: HOME Patient Education Materials: Acute Abdominal Pain (ED) Referrals: [facility] [Outside] - 2 Days Additional Instructions: PLEASE FOLLOW UP WITH [facility] IN 2-3 DAYS TO HELP ESTABLISH A PRIMARY CARE PHYSICIAN AND RETURN TO THE EMERGENCY DEPARTMENT FOR ANY NEW OR WORSENING SYMPTOMS. - Attestation Statements Document Initiated by Scribe: Yes Documenting Scribe: EZEQUIEL DOAN Provider For Whom Scribe is Documenting (Include Credential): AMERICA MILLAN MD Scribe Attestation: IEZEQUIEL, scribed for AMERICA MILLAN MD on 10/08/19 at 2310. Status of Scribe Document: Ready
[2019-10-08 19:03] LABS: ALT 11 U/L (7-52); AST 12 U/L (13-39); Albumin 4.7 g/dL (3.2-5.2); Albumin/Globulin Ratio 1.9 (1-3); Alkaline Phosphatase 53 U/L (34-104); Anion Gap 6 mmol/L (2-11); BUN/Creatinine Ratio 14.3 (8-20); Blood Urea Nitrogen 11 mg/dL (6-24); C Reactive Protein 1.82 mg/L (<8.01); CO2 Carbon Dioxide 28 mmol/L (22-32); Calcium 9.7 mg/dL (8.6-10.3); Chloride 107 mmol/L (101-111); EGFR African American 110.5 (>60); EGFR Non-African American 91.3 (>60); Globulin 2.5 g/dL (2-4); Glucose 101 mg/dL (70-100); HCG Pregnancy 0.78 mIU/mL; Potassium 4.4 mmol/L (3.5-5.0); Sodium 141 mmol/L (135-145); Total Protein 7.2 g/dL (6.4-8.9)
[2019-10-08] MEDS ORDERED: Iohexol 300* (CONTRAST) 10 ML SDV IV ONE (21:47)
--- NOTE | 2019-10-08 22:06 | ED ---
Progress - Progress Note Progress Note: This pt is a sign out from Dr. Jackson Dahl MD to Dr. Chery Pennington MD at shift change 2200 10/08/[address] A/P and disposition. - Results/Orders Results/Orders: CT A/P: No CT findings to correlate with patient's symptomatology. Specifically no appendicitis. ED physician has reviewed this report. Re-Evaluation - Re-Evaluation First Eval Re-Evaluation Time: 22:29 Change: Improved Comment: I have discussed results with the patient and abdominal pain is resolved. Discussed symptoms that warrant immediate return to ED. Course/Dx - Course Course Of Treatment: This pt is a sign out from Dr. Jackson Dahl MD to Dr. Chery Pennington MD at shift change 2200 10/08/[address] A/P and disposition. Her CT A/P found the following: No CT findings to correlate with patient's symptomatology. Specifically no appendicitis. - Diagnoses Provider Diagnoses: RLQ abdominal pain Discharge ED - Sign-Out/Discharge Documenting (check all that apply): Patient Departure - discharge , Receiving Sign-Out Receiving patient FROM: Jackson Dahl - Discharge Plan Condition: Stable Disposition: HOME Patient Education Materials: Acute Abdominal Pain (ED) Referrals: [facility] [Outside] - 2 Days Additional Instructions: PLEASE FOLLOW UP WITH [facility] IN 2-3 DAYS TO HELP ESTABLISH A PRIMARY CARE PHYSICIAN AND RETURN TO THE EMERGENCY DEPARTMENT FOR ANY NEW OR WORSENING SYMPTOMS. - Billing Disposition and Condition Condition: STABLE Disposition: Home - Attestation Statements Document Initiated by Scribe: Yes Documenting Scribe: Lul Renee Provider For Whom Autumn is Documenting (Include Credential): Chery Pennington MD Scribe Attestation: ILul, scribed for Chery Pennington MD on 10/09/19 at 0359. Scribe Documentation Reviewed: Yes Provider Attestation: The documentation as recorded by the Lul garcia accurately reflects the service I personally performed and the decisions made by me, Chery Pennington MD Status of Scribe Document: Viewed
[2019-10-09 00:16] VITALS: BP 109/58
== END 2019-10-09 00:14 | disposition home or self-care (01) ==
LOC: ED 16:00
DX: R10.31 Right lower quadrant pain (principal); R11.0 Nausea; R42 Dizziness and giddiness; H91.90 Unspecified hearing loss, unspecified ear; F17.210 Nicotine dependence, cigarettes, uncomplicated; Z79.899 Other long term (current) drug therapy
CPT/HCPCS: 36415; 74177; 76705; 76856; 80053; 83690; 84702; 85025; 86140; 99283; A9270-GY; Q9967